=== PATIENT | female | born 1990 | race Caucasian/White ===

== ENCOUNTER 2017-05-01 09:36 | Inpatient (IN) | payer OTHER ==
[~2017-05-01] VITALS: Ht 160 cm; Wt 48.2 kg
[2017-05-01 10:31] VITALS: BP 93/51
[2017-05-01 12:00] VITALS: BP 100/57
[2017-05-01 12:53] LABS: BILIRUBIN NEGATIVE (NEGATIVE); BLOOD NEGATIVE (NEGATIVE); CLARITY SL CLOUDY (CLEAR); COLOR YELLOW (YELLOW); GLUCOSE NEGATIVE (NEGATIVE); KETONE NEGATIVE (NEGATIVE); LEUKO ESTERASE NEGATIVE (NEGATIVE); NITRITE NEGATIVE (NEGATIVE); PH 5.5 (5.0-9.0); PROTEIN NEGATIVE (NEGATIVE); UROBILINOGEN 0.2 E.U./dl (0.2-1.0)
[2017-05-01 13:01] LABS: URINE AMPHETAMINES < 1000 (1000ng/ml); URINE BARBITURATES < 200 (200ng/ml); URINE COCAINE > 300 (300ng/ml)
[2017-05-01 13:02] LABS: HEMATOCRIT 38.6 % (37.0-47.0); MEAN CELL VOLUME 75.8 fl (81.0-99.0); MEAN CORPUSCULAR HGB 23.6 pg (27.0-31.0); MEAN CORPUSCULAR HGB CONC 31.1 g/dl (33.0-37.0); MEAN PLATELET VOLUME 10.1 fl (9.6-12.3); PLATELET COUNT AUTOMATED 253 10*3/uL (130-400); RED BLOOD COUNT 5.09 10*6/uL (4.10-5.10); RED CELL DISTRI WIDTH 16.4 % (0-14.5); WHITE BLOOD COUNT 9.4 10*3/uL (4.8-10.8)
[2017-05-01 13:15] LABS: BACTERIA 2+; EPITHELIAL CELLS 15-20
[2017-05-01 13:16] LABS: URINE REFLEX COMMENT YES (NO)
[2017-05-01 13:16] LABS: ALBUMIN 3.1 gm/dl (3.1-4.5); ALKALINE PHOSPHATASE 90 U/L (45-117); BILIRUBIN, TOTAL 0.6 mg/dl (0.2-1.0); BUN 10 mg/dl (7-24); CARBON DIOXIDE 30 mmol/L (21-32); CHLORIDE 105 mmol/L (98-107); EST GLOM FILT AFRICAN AMERICAN > 60 ml/min; GLUCOSE 99 mg/dL (65-99); INTERNATIONAL NORM RATIO 0.9 (2.0-3.5); POTASSIUM 4.2 mmol/L (3.5-5.1); PROTHROMBIN TIME 9.7 SECONDS (9.0-12.4); SGOT/AST 42 IU/L (3-35); SGPT/ALT 54 U/L (12-78); SODIUM 142 mmol/L (136-145); TOTAL PROTEIN 7.6 gm/dL (6.4-8.2)
[2017-05-01 13:28] LABS: BASOPHIL # 0.1 10*3/uL (0-0.1); BASOPHILS 1 % (0-1); EOSINOPHIL # 0.2 10*3/uL (0-0.4); EOSINOPHILS 2 % (1-4); LYMPHOCYTE # 2.3 10*3/uL (1.3-4.4); MONOCYTE # 0.2 10*3/uL (0.1-1.0); NEUTROPHIL # 6.7 10*3/uL (2.3-7.9); NEUTROPHILS 71 % (47-73); PLATELET SUFFICIENCY NORMAL (NORMAL); TOTAL CELLS COUNTED 100 #CELLS
[2017-05-01 16:00] VITALS: BP 99/67
[2017-05-01 20:00] VITALS: BP 110/71
[2017-05-02] VITALS: BP 112/70
[2017-05-02 04:00] VITALS: BP 106/58
[2017-05-02 08:00] VITALS: BP 100/54
[2017-05-02 13:42] VITALS: BP 111/52
[2017-05-02 16:00] VITALS: BP 95/55
[2017-05-02 20:00] VITALS: BP 98/59
[2017-05-03] VITALS: BP 99/54
[2017-05-03 08:00] VITALS: BP 94/50
[2017-05-03 12:00] VITALS: BP 92/57
[2017-05-03 16:00] VITALS: BP 94/54
[2017-05-03 20:00] VITALS: BP 100/53
[2017-05-04] VITALS: BP 94/49
[2017-05-04 06:07] LABS: BASO # 0.1 10*3/uL (0.0-0.1); BASO % 0.7 % (0.0-1.0); EOS # 0.2 10*3/uL (0.0-0.4); EOS % 1.9 % (1.0-4.0); HEMATOCRIT 41.2 % (37.0-47.0); HEMOGLOBIN 12.6 g/dl (12.0-16.0); IG # 0.1 10*3/uL (0.0-0.1); LYMPH # 3.2 10*3/uL (1.3-4.4); LYMPH % 40.1 % (27.0-41.0); MEAN CORPUSCULAR HGB 23.6 pg (27.0-31.0); MEAN CORPUSCULAR HGB CONC 30.6 g/dl (33.0-37.0); MEAN PLATELET VOLUME 10.4 fl (9.6-12.3); MONO # 0.3 10*3/uL (0.1-1.0); NEUT # 4.3 10*3/uL (2.3-7.9); NEUT % 52.6 % (47.0-73.0); PLATELET COUNT AUTOMATED 292 10*3/uL (130-400); RED BLOOD COUNT 5.35 10*6/uL (4.10-5.10); RED CELL DISTRI WIDTH 16.4 % (0-14.5); WHITE BLOOD COUNT 8.1 10*3/uL (4.8-10.8)
[2017-05-04 06:34] LABS: EST GLOM FILT AFRICAN AMERICAN > 60 ml/min
[2017-05-04 08:00] VITALS: BP 85/54
[2017-05-04] MEDS ORDERED: ATARAX,VISTARIL50 MG PO (09:52)
== END 2017-05-04 10:31 | DRG 897 ==
LOC: 4E 09:36
PROVIDERS: Internal Medicine; Internal Medicine Nephrology
DX: F11.23 Opioid dependence with withdrawal (principal); E44.0 Moderate protein-calorie malnutrition; Z68.1 Body mass index [BMI] 19.9 or less, adult; G25.81 Restless legs syndrome; F41.9 Anxiety disorder, unspecified; F14.90 Cocaine use, unspecified, uncomplicated; Z98.891 History of uterine scar from previous surgery; Z72.0 Tobacco use